=== PATIENT | male | born 1965 | race Caucasian/White ===

== ENCOUNTER → 2022-08-31 | Outpatient (CLI) | payer OTHER | END | disposition home or self-care (01) | LOC: LABPAT 12:10 | PROVIDERS: ATTEND Orthopaedic Surgery | DX: Z01.812 Encounter for preprocedural laboratory examination (principal); E11.9 Type 2 diabetes mellitus without complications; M16.9 Osteoarthritis of hip, unspecified | CPT/HCPCS: 83036 ==

== ENCOUNTER 2022-09-09 05:36 | Day surgery (SDC) | payer OTHER ==
[2022-09-06 16:17] VITALS: BMI 29.3
[~2022-09-09 05:36] MED LIST: ACETAMINOPHEN TAB 500 MG TAB PO PRN; ONDANSETRON 4 MG/2 ML VIAL IVP PRN; ROPIVACAINE/EPI/CLONIDINE/KET 50 ML SYRINGE MISCELLANE PRN; TRANEXAMIC ACID IN NACL,ISO-OS 1,000 MG in SALINE 1 100ML.BAG IVPB PRN
[2022-09-09] MEDS ORDERED: oxyCODONE ER 10 MG TAB.ER.12H PO PRN (06:00)
[2022-09-09] MEDS ORDERED: DEXAMETHASONE SOD PHOSPHATE 10 MG/ML 1 ML VIAL IV PRN (06:00)
[2022-09-09] MEDS ORDERED: KETOROLAC 15 MG/ML 1 ML VIAL IVP PRN (06:00)
[2022-09-09] MEDS ORDERED: FAMOTIDINE 20 MG/2 ML VIAL IVP PRN (06:00)
[2022-09-09] MEDS ORDERED: DOCUSATE 100 MG CAP PO PRN (06:00)
[2022-09-09] MEDS ORDERED: LACTATED RINGERS 1,000 ML IV ONE ×5 (06:00→10:00)
[2022-09-09 06:23] LABS: Glucose,Whole Blood 173 mg/dL (70-110)
[2022-09-09] MEDS ORDERED: fentaNYL (PF) 50 MCG/ML 2 ML AMP IVP ONE (06:48)
[2022-09-09] MEDS ORDERED: MIDAZOLAM 2 MG/2 ML VIAL IVP ONE (06:48)
[2022-09-09] MEDS ORDERED: ROPIVACAINE/EPI/CLONIDINE/KET 50 ML SYRINGE MISCELLANE PRN (06:54)
[2022-09-09] MEDS ORDERED: ROPIVACAINE 5 MG/ML 30 ML VIAL ONE (07:10)
[2022-09-09] MEDS ORDERED: GLYCOPYRROLATE 0.2 MG/ML 2 ML VIAL ONE (07:10)
[2022-09-09] MEDS ORDERED: PHENYLEPHRINE-0.9% NACL SYG 1,000 MCG/10 ML SYRINGE ONE (07:10)
[2022-09-09] MEDS ORDERED: MIDAZOLAM 2 MG/2 ML VIAL ONE (07:10)
[2022-09-09] MEDS ORDERED: ROCURONIUM 10 MG/ML (5 ML VIAL) IV ONE (07:10)
[2022-09-09] MEDS ORDERED: PROPOFOL 10 MG/ML 20 ML VIAL IV ONE (07:10)
[2022-09-09] MEDS ORDERED: SUCCINYLCHOLINE CHLORIDE 200 MG/10 ML VIAL IV ONE (07:10)
[2022-09-09] MEDS ORDERED: TRANEXAMIC ACID IN NACL,ISO-OS 1,000 MG/100 ML BAG ONE (07:10)
[2022-09-09] MEDS ORDERED: HYDROmorphone (PF) 1 MG/ML ONE (07:10)
[2022-09-09] MEDS ORDERED: NEOSTIGMINE 1 MG/ML 10 ML VIAL ONE (07:10)
[2022-09-09] MEDS ORDERED: VASOPRESSIN 20 UNIT/ML 1 ML VIAL ONE (07:10)
[2022-09-09] MEDS ORDERED: LIDOCAINE 2% INJ 20 MG/ML (2 ML VIAL) ONE (07:10)
[2022-09-09] MEDS ORDERED: fentaNYL (PF) 50 MCG/ML 2 ML AMP ONE (07:10)
[2022-09-09] MEDS ORDERED: VANCOMYCIN 1,000 MG VIAL MISCELLANE ONE (09:02)
[2022-09-09] MEDS ORDERED: HYDROcodone/APAP 5-325MG 1 EACH TAB PO PRN ×2 (09:42)
[2022-09-09] MEDS ORDERED: HYDROmorphone 0.5 MG/0.5 ML SYRINGE IVP PRN ×2 (09:42)
[2022-09-09] MEDS ORDERED: hydrOXYzine pamoate 25 MG CAP PO PRN (09:42)
[2022-09-09] MEDS ORDERED: NALOXONE 0.4 MG/ML 1 ML VIAL IV PRN (09:42)
[2022-09-09] MEDS ORDERED: HYDROmorphone 1 MG/ML 1 ML SYRINGE IVP PRN (09:42)
--- NOTE | 2022-09-09 09:51 | P.OP ---
Date of Procedure: 09/09/22 Preoperative Diagnosis: 1. Severe left hip osteoarthritis 2. Type II Diabetes 3. Coronary artery disease Postoperative Diagnosis: Same Procedure(s) Performed: Left direct anterior total hip arthroplasty Implants: 1. Stafford Trident II Acetabular Cup, Size #56 2. Cheryl Insignia Size # 8 Femoral Stem, High Offset 3. Biolox delta femoral head, 36 mm, +2.5 neck Anesthesia: GETA Surgeon: Kj Arenas [employer] Cutter #1: Mariana Timmons Estimated Blood Loss (ml): 300 IV fluids (ml): 1,200 Pathology: none sent (Routine gross and/or histopathologic evaluation by pathology not indicated based on my preoperative assessment of x-rays and intraoperative findings.) Condition: stable Disposition: PACU Indications for Procedure: I had a long discussion with the patient in the office on the potential risks and complications of an elective total hip replacement through a direct anterior approach. Risks discussed include, but are certainly not limited to, risks from anesthesia, superficial infection requiring local wound care or antibiotics, deep josafat-prosthetic joint infection and the treatment required to eradicate infection, intraoperative fracture, postoperative periprosthetic fracture, dam age to local blood vessels or nerves particularly the lateral femoral cutaneous nerve, delayed wound healing requiring local wound care or possibly surgical debridement, hip dislocation, leg length discrepancy, soft tissue irritation around the total hip implant such as iliopsoas tendinitis or trochanteric bursitis, wear and osteolysis from the implants, squeaking or audible noises, groin pain, thigh pain, heterotopic ossification, stiffness, aseptic loosening of the implants, dissatisfaction with surgical outcome, need for revision surgery, DVT, PE, swelling of the operative extremity, acute coronary event, stroke, failure to thrive, and possibly loss of life or limb. The patient understands that while these are the most common complications after an elective hip replacement there are certainly other less common complications possible. They were given ample time to ask questions regarding the potential complications of a hip replacement. Following our discussion the patient provided their verbal and written consent to go forward with an elective total hip replacement. Operative Findings: Severe osteoarthritis of the left femoral head and acetabulum. Description of Procedure: The patient was identified in the preoperative holding area and the correct hip was marked with my initials. I reviewed the procedure and consent with the patient. All of their questions were answered. The patient was then brought back into the operating room by anesthesia. While on the [facility] anesthesia was administered by the anesthesia team. Preoperative antibiotics and tranexamic acid were also given. After the patient was under anesthesia I examined their ankles to determine their preoperative leg length discrepancy. The skin over t he anterior aspect of the hip was shaved to remove hair over the site of planned incision. Both feet and ankles were padded with webril and boots for the [place] were applied. The patient was then carefully transferred onto the [place] table. A perineal post was immediately placed. The arms were placed on arm holders and were well-padded. Both boots were secured to the spars on the [place] table. The patient was positioned so that the pelvis was centered over the post. Nonsterile drapes were applied. A timeout was performed identifying the correct patient, operative extremity, and procedure. At this point fluoroscopy was brought in to take preoperative images of the pelvis and operative hip. Using the standing AP pelvis from the office as a template, a comparable image was obtained with fluoroscopy. A metallic bar was used to create a bi-ischial line for use as a reference to leg length adjustments during the procedure. Global offset was also measured on both the operative and nonoperative leg. Fluoroscopy was then brought out and a pre-scrub using a chlorhexidine scrub brush was performed. The operative limb was then prepped and draped in the standard sterile fashion. An anterior longitudinal incision was made lateral and distal to the ASIS. The skin and subcutaneous tissues were incised sharply. The underlying tensor fascia was identified and incised in its midportion. The fascia was dissected free from the underlying muscle and the muscle belly was retracted. A blunt tipped cobra retractor was placed over the superior neck under the muscle fibers of the gluteus minimus. The deep enveloping fascia of the tensor was incised. The anterior leash of vessels were then identified and cauterized. The fascia between the rectus and the capsule was then incised and the pre-capsular fat was excised. A second Cobra was placed inferior to the neck. The interval between the rectus and iliocapsularis and the hip capsule was developed and a retractor was placed carefully over the anterior rim of the acetabulum. A T-shaped anterior capsulotomy was performed. The superior capsular leaflet was left in place in the inferior capsular flap was excised. The Cobra retractors were placed intracapsularly. We then made a femoral neck osteotomy according to preoperative and intraoperative templating and confirmed the level of the osteotomy using fluoroscopic imaging. The femoral head was removed, passed off to the back table, and sized. The superior capsular flap was excised. Retractors were placed circumferentially exposing the acetabulum. We then circumferentially debrided the acetabulum free of labrum and osteophytes. The pulvinar was removed to fully visualize the cotyloid fossa. We then sequentially reamed to achieve peripheral fit and excellent bleeding subchondral bone. The socket was thoroughly irrigated. The acetabular component was impacted into the appropriate position using fluoroscopy to guide version, inclination, and depth of insertion taking care to have a comparable image of the AP pelvis to the standing image taken in the office. An excellent press-fit was achieved and final position was confirmed using fluoroscopy. The press fit was augmented with bony cancellus dome screws. The liner was then impacted into the socket. Attention was then turned to the femur. The remnant dorsal lateral capsule was excised. The short external rotators were visible and protected. A bone hook was used to confirm appropriate translation of the trochanter away from the acetabulum. The leg was then extended and adducted and the bone hook was used to elevate the femur for broaching. A box osteotome and blunt tipped canal sound was then utilized to gain access to the femoral canal. We then sequentially broached the femur in appropriate anteversion until excellent torsional stability was achieved. The neck cut was brought flush to the trial broach with a calcar planar. A trial neck and head were then placed onto the broach and the hip was atraumatically reduced under direct visualization. External rotation to 90 was performed to assess stability. Fluoroscopy was brought in. An AP and lateral fluoroscopic image of the proximal femur was obtained to assess position and fill of the trial broach. An AP of the pelvis was then obtained and matched to the preoperative image taken. A bi-ischial bar was then placed and measurements were taken to assess changes in length and offset. The hip was then carefully dislocated, the proximal femur was exposed, and the trial implants were removed. The wound and proximal femur was thoroughly irrigated using sterile saline and pulsatile lavage. The final femoral implant was dispensed and gently tapped into place generating an excellent press-fit. The trunnion was cleansed and the final head was tapped into place to engage the Waldrop taper. The acetabulum was irrigated and visualized to be free of debris. The hip was carefully reduced. Stability was checked clinically with external rotation to 90 and there was no evidence of instability. Final fluoroscopic images were taken. The wound was then thoroughly irrigated and soaked with a dilute Betadine rinse for 3 minutes. 3 L of sterile saline was irrigated through the wound using pulsatile lavage. Local anesthetic cocktail was injected into the soft tissues around the surgical field. The wound was then closed in layers. A sterile dressing was placed over the surgical incision. The drapes were taken down and the patient was carefully transferred off of the [place] table. Following removal of the boots the leg lengths felt acceptable. The patient was then taken to recovery room having tolerated the procedure well. Mariana Timmons PA-C was required as a skilled certified surgical assistant for patient positioning, surgical exposure, retraction, placement of implants, and closure of the surgical wound. PLAN: The patient can weight-bear as tolerated on the operative extremity. 2 doses of postoperative antibiotics. DVT prophylaxis with aspirin 81 mg twice a day based on preoperative risk stratification. Physical therapy for gait training.
--- NOTE | 2022-09-09 09:55 | FL ---
Fluoroscopy HISTORY: Anterior hip replacement 45 seconds fluoroscopy time supplied to the referring clinician. 6 intraoperative C-arm images docum ent the procedure. See dictated report from orthopedic surgery.
[2022-09-09 11:18] LABS: Glucose,Whole Blood 236 mg/dL (70-110)
[2022-09-09] MEDS ORDERED: INSULIN ASPART (NovoLOG) 100 UNIT/ML VIAL SQ ONE (11:24)
--- NOTE | 2022-09-09 11:24 | P.ANPRN ---
Procedure Note - Anesthesia - Nerve Block Performed Left Erector Spinae Single Time Out Performed: Yes ([id number]) Date of Procedure: 09/09/22 Procedure Start Time: 06:48 Procedure Stop Time: 06:54 Location of Patient: PreOp Indication: Acute Post-Operative Pain, Requested by Surgeon Specifically requested for management of pain by DrTristen: Kj Arenas Sedation Type: Sedate with meaningful contact maintained Preparation: Sterile Prep Position: Sitting Catheter: None Needle Types: Pajunk Needle Gauge: 21 Ultrasound used to visualize needle placement: Yes Ultrasound used to observe medication spread: Yes Injectate: 0.5% Ropivacaine (see comment for volume) (30cc) Blood Aspirated: No Pain Paresthesia on Injection Noted: No Resistance on Injection: Normal Image Stored and Saved: Yes Events: Uneventful and Well Tolerated
[2022-09-09] MEDS: LACTATED RINGERS 1,000 ML IV SCH ×2 (14:49→15:11)
[2022-09-09] MEDS ORDERED: BENZOCAINE/MENTHOL LOZENG 1 EACH LOZENGE MUCOUS MEM PRN (15:50)
[2022-09-09 16:46] LABS: Glucose,Whole Blood 202 mg/dL (70-110)
[2022-09-09 20:09] LABS: Glucose,Whole Blood 190 mg/dL (70-110)
[2022-09-09] MEDS ORDERED: SENNOSIDES-DOCUSATE SODIUM 1 EACH TAB PO SCH (21:00)
[2022-09-09] MEDS: ASPIRIN 81 MG PO SCH (21:26)
[2022-09-10] MEDS ORDERED: ONDANSETRON 4 MG TAB PO PRN (01:58)
[2022-09-10 02:58] VITALS: PULSE 85; TEMP 98.3
[2022-09-10 07:14] LABS: Glucose,Whole Blood 163 mg/dL (70-110)
[2022-09-10] MEDS: LACTATED RINGERS 1,000 ML IV SCH (07:18)
[2022-09-10] MEDS: ASPIRIN 81 MG PO SCH (08:50)
[2022-09-10 08:55] LABS: HCT 33.2 % (39.6-50.0); HGB 11.4 g/dL (13.0-17.0); MCH 31.5 pg (27.0-32.0); MCHC 34.3 g/dL (32.0-37.0); MCV 91.7 fL (80.0-97.0); Mean Platelet Volume 9.5 fL (9.5-12.2); NRBC Per 100 WBC 0 /100 WBCS (0.0-0.0); Platelet Count 277 X 10*3/uL (140-440); RBC 3.62 X 10*6/uL (4.40-5.60); RDW 12.4 % (11.5-14.5); WBC 15.38 X 10*3/uL (4.50-10.00)
[2022-09-10] MEDS ORDERED: ASPIRIN 81 MG PO SCH (09:00)
[2022-09-10] MEDS ORDERED: FLUoxetine HCL 20 MG CAP PO SCH (09:00)
--- NOTE | 2022-09-10 09:31 | P.DS ---
Providers Date of admission: 09/09/2022 Expected date of discharge: 09/10/22 Attending physician: Kj Arenas Consults: 09/09/22 09:42 Consult Physician Routine Consulting Provider: Bhavna Leone Consult Reason/Comments: medical management Do you want consulting provider notified?: Yes Primary care physician: Humberto Carter - Discharge Diagnosis(es) (1) Primary localized osteoarthritis of left hip Current Visit: Yes Status: Acute (2) Status post total replacement of left hip Current Visit: Yes Status: Acute Hospital Course: This is a 57-year-old Male with known history of degenerative arthritis of the hip. The patient presents for evaluation. After discussion and consideration patient elects to proceed with total hip arthroplasty with direct anterior approach. The patient is seen preoperatively by primary care physician and cleared for surgery. Patient is admitted to [facility] on 09/09/2022 for total hip arthroplasty with direct anterior approach. The procedure is performed without complication or sequelae. The patient is doing well postoperatively. Labs and vital signs are stable on day of discharge. On day of discharge patient's hip incision is healing well. There is minimal erythema. There is no drainage noted at this time. There is minimal soft tissue swelling to the hip and thigh. Patient has full foot and ankle motion without difficulty or pain. Neurovascular status to the lower extremity is intact. Patient is discharged to home in good condition. Please see med rec for accurate list of home medications. Plan - Discharge Summary Discharge Rx Participant: No New Discharge Prescriptions: New Omeprazole 40 mg PO DAILY 30 Days #30 cap Diclofenac Sodium [Voltaren] 75 mg PO BID 30 Days #60 tab Aspirin 81 mg PO BID 30 Days #60 tab Docusate [Colace] 100 mg PO BID #60 capsule Doxycycline Monohydrate 100 mg PO BID 14 Days #28 cap HYDROcodone/APAP 5-325MG [[place] 5-325] 1 - 2 tab PO Q6HR PRN 7 Days #32 tab PRN Reason: Pain No Action Aspirin 81 mg PO DAILY metFORMIN HCL 1,000 mg PO BID Atorvastatin [Lipitor] 40 mg PO HS Dulaglutide [Trulicity] 3 mg SQ TH glipiZIDE XL [Glucotrol XL] 10 mg PO BID Pantoprazole [Protonix] 40 mg PO HS FLUoxetine HCL [PROzac] 20 mg PO DAILY Lisinopril-Hctz 20-25 mg [Zestoretic 20-25] 1 tab PO HS Discharge Medication List Aspirin 81 mg PO DAILY 09/06/22 [History] Atorvastatin [Lipitor] 40 mg PO HS 09/06/22 [History] Dulaglutide [Trulicity] 3 mg SQ TH 09/06/22 [History] FLUoxetine HCL [PROzac] 20 mg PO DAILY 09/06/22 [History] Lisinopril-Hctz 20-25 mg [Zestoretic 20-25] 1 tab PO HS 09/06/22 [History] metFORMIN HCL 1,000 mg PO BID 09/06/22 [History] Pantoprazole [Protonix] 40 mg PO HS 09/08/22 [History] glipiZIDE XL [Glucotrol XL] 10 mg PO BID 09/08/22 [History] Aspirin 81 mg PO BID 30 Days #60 tab 09/09/22 [Rx] Diclofenac Sodium [Voltaren] 75 mg PO BID 30 Days #60 tab 09/09/22 [Rx] Docusate [Colace] 100 mg PO BID #60 capsule 09/09/22 [Rx] Doxycycline Monohydrate 100 mg PO BID 14 Days #28 cap 09/09/22 [Rx] HYDROcodone/APAP 5-325MG [[place] 5-325] 1 - 2 tab PO Q6HR PRN 7 Days #32 tab 09/09/22 [Rx] Omeprazole 40 mg PO DAILY 30 Days #30 cap 09/09/22 [Rx] Follow up Appointment(s)/Referral(s): Kj Arenas MD [Medical Doctor] - 2 Weeks Activity/Diet/Wound Care/Special Instructions: Weight bear to tolerance on operative extremity with a walker. Keep operative dressing in place until follow-up in the office. Call the office if dressing falls off or becomes saturated. May shower over dressing. Take pain medications as prescribed. Take aspirin 81mg BID x 4 weeks for blood c lot prevention. Take antibiotics as prescribed. Follow-up in the office in two weeks with Dr. Arenas. Call the office with any questions or concerns, Discharge Disposition: HOME WITH HOME HEALTH SERVICES
[2022-09-10 09:46] LABS: Basophils # (A) 0.02 X 10*3/uL (0.00-0.10); Basophils % (A) 0.1 %; Eosinophils # (A) 0.01 X 10*3/uL (0.04-0.35); Eosinophils % (A) 0.1 %; Immature Grans, Automated 0.3 %; Lymphocytes # (A) 1.86 X 10*3/uL (0.90-5.00); Lymphocytes % (A) 12.1 %; Monocytes # (A) 1.58 X 10*3/uL (0.20-1.00); Monocytes % (A) 10.3 %; Neutrophils # (A) 11.86 X 10*3/uL (1.80-7.70); Neutrophils % (A) 77.1 %
[2022-09-10 10:02] VITALS: BP 104/67; RESP 15
[2022-09-10] MEDS ORDERED: LISINOPRIL-HCTZ 20-25 MG 1 EACH TAB PO SCH (21:00)
[2022-09-10] MEDS ORDERED: PANTOPRAZOLE 40 MG TABLET PO SCH (21:00)
[2022-09-10] MEDS ORDERED: ATORVASTATIN 40 MG TAB PO SCH (21:00)
== END 2022-09-10 13:27 | disposition home health service (06) ==
LOC: OR 05:36 → 4SSUR 14:14 → OR 09-10 13:27
PROVIDERS: ATTEND Orthopaedic Surgery
DX: M16.12 Unilateral primary osteoarthritis, left hip (principal); E11.9 Type 2 diabetes mellitus without complications; I25.10 Atherosclerotic heart disease of native coronary artery without angina pectoris; M25.752 Osteophyte, left hip; I11.9 Hypertensive heart disease without heart failure; Z83.3 Family history of diabetes mellitus; Z82.49 Family history of ischemic heart disease and other diseases of the circulatory system; Z87.891 Personal history of nicotine dependence; Z86.59 Personal history of other mental and behavioral disorders
CPT/HCPCS: 97162; 64999; 86900; 86901; 85025; 86850; 73501; 27130; J2250; J3370; J1100; J0690 ×2; J2405; J3010; J1885

== ENCOUNTER 2023-09-29 20:04 | Emergency (ER) | payer OTHER ==
[2023-09-29 20:44] VITALS: RESP 18; TEMP 98.1
--- NOTE | 2023-09-29 21:58 | ED ---
Eye Problem HPI - General Chief complaint: Eye Problems Stated complaint: facial pain/swelling Time Seen by Provider: 09/29/23 21:00 Source: patient Mode of arrival: ambulatory Limitations: no limitations - History of Present Illness Initial comments: 58-year-old male presents to the ED with chief complaint of eye problem. Patient states earlier this week was having eye irritation and discharge and was seen at an urgent care. Was told he had pinkeye and was prescribed Keflex and tobramycin eyedrops on 09/25/23. Despite using this, reports worsening pain of the eye and also notes that he is now started to have pain and swelling of the face surrounding the eye. Denies fever or chills. No chest pain shortness of breath. No other complaints. - Related Data Home Medications Medication Instructions Recorded Confirmed Aspirin 81 mg PO DAILY 09/06/22 09/08/22 Atorvastatin [Lipitor] 40 mg PO HS 09/06/22 09/08/22 Dulaglutide [Trulicity] 3 mg SQ TH 09/06/22 09/08/22 FLUoxetine HCL [PROzac] 20 mg PO DAILY 09/06/22 09/08/22 Lisinopril-Hctz 20-25 mg 1 tab PO HS 09/06/22 09/08/22 [Zestoretic 20-25] metFORMIN HCL 1,000 mg PO BID 09/06/22 09/08/22 Pantoprazole [Protonix] 40 mg PO HS 09/08/22 09/08/22 glipiZIDE XL [Glucotrol XL] 10 mg PO BID 09/08/22 09/08/22 Previous Rx's Medication Instructions Recorded Aspirin 81 mg PO BID 30 Days #60 tab 09/09/22 Diclofenac Sodium [Voltaren] 75 mg PO BID 30 Days #60 tab 09/09/22 Docusate [Colace] 100 mg PO BID #60 capsule 09/09/22 Doxycycline Monohydrate 100 mg PO BID 14 Days #28 cap 09/09/22 HYDROcodone/APAP 5-325MG [[place] 1 - 2 tab PO Q6HR PRN 7 Days #32 09/09/22 5-325] tab Omeprazole 40 mg PO DAILY 30 Days #30 cap 09/09/22 Amoxic-Pot Clav 875-125Mg 1 tab PO Q12HR 7 Days #14 tab 09/30/23 [Augmentin 875-125] Allergies Allergy/AdvReac Type Severity Reaction Status Date / Time ciprofloxacin [From Cipro] Allergy VERY LOW Verified 09/29/23 20:31 BLOOD SUGAR Review of Systems ROS Statement: Those systems with pertinent positive or pertinent negative responses have been documented in the HPI. ROS Other: All systems not noted in ROS Statement are negative. Past Medical History Past Medical History: Coronary Artery Disease (CAD), Cancer, Chest Pain / Angina, Diabetes Mellitus, GERD/Reflux, Hypertension Additional Past Medical History / Comment(s): SKIN CANCER, History of Any Multi-Drug Resistant Organisms: None Reported Past Surgical History: Heart Catheterization, Orthopedic Surgery Additional Past Surgical History / Comment(s): SKIN LESION REMOVED, COLONOSCOPY, Left hip replacement, Past Anesthesia/Blood Transfusion Reactions: No Reported Reaction Past Psychological History: Anxiety Smoking Status: Former smoker Past Alcohol Use History: Rare Past Drug Use History: None Reported - Past Family History Mother Family Medical History: No Reported History Father Family Medical History: Cancer Additional Family Medical History / Comment(s): LUNG CANCER General Exam Limitations: no limitations General appearance: alert, in no apparent distress Eye exam: Present: PERRL, EOMI, other (Injected. Reported pain on extraocular movements however no entrapment. No proptosis. Surrounding warmth and erythem a, minimal edema with tenderness palpation.) Respiratory exam: Present: normal lung sounds bilaterally Cardiovascular Exam: Present: regular rate, normal rhythm GI/Abdominal exam: Present: soft Neurological exam: Present: alert, oriented X3 Skin exam: Present: warm, dry Course Vital Signs 09/29/23 20:31 Temperature 98.1 F Pulse Rate 98 Respiratory 18 Rate Blood Pressure 123/81 O2 Sat by Pulse 98 Oximetry Medical Decision Making - Medical Decision Making Was pt. sent in by a medical professional or institution (, PA, DRAW FIRE OPERATOR, urgent care, hospital, or correction...) When possible be specific @ -No Did you speak to anyone other than the patient for history (EMS, parent, family, police, friend...)? What history was obtained from this source @ -No Did you review nursing and triage notes (agree or disagree)? Why? @ -I reviewed and agree with nursing and triage notes Were old charts reviewed (outside hosp., previous admission, EMS record, old EKG, old radiological studies, urgent care reports/EKG's, correction records)? Report findings @ -No old charts were reviewed Differential Diagnosis (chest pain, altered mental status, abdominal pain women, abdominal pain men, vaginal bleeding, weakness, fever, dyspnea, syncope, headache, dizziness, GI bleed, back pain, seizure, CVA, palpatations, mental health, musculoskeletal)? @ -Preseptal cellulitis, orbital cellulitis, Facial cellulitis, MRSA. This not meant to be an all-inclusive list. EKG interpreted by me (3pts min.). @ -None X-rays interpreted by me (1pt min.). @ -None done CT interpreted by me (1pt min.). @ -CT interpreted by me showing preseptal cellulitis however no evidence of orbital cellulitis. U/S interpreted by me (1pt. min.). @ -None done What testing was considered but not performed or refused? (CT, X-rays, U/S, labs)? Why? @ -None What meds were considered but not given or refused? Why? @ -None Did you discuss the management of the patient with other professionals (professionals i.e. , PA, DRAW FIRE OPERATOR, lab, RT, psych nurse, social security assessor, disaster recovery consultant, teacher, code enforcement officer, case work aide)? Give summary @ -No Was smoking cessation discussed for >3mins.? @ -No Was critical care preformed (if so, how long)? @ -No Were there social determinants of health that impacted care today? How? (Homelessness, low income, unemployed, alcoholism, drug addiction, transportation, low edu. Level, literacy, decrease access to med. care, fpc, re hab)? @ -No Was there de-escalation of care discussed even if they declined (Discuss DNR or withdrawal of care, Hospice)? DNR status @ -No What co-morbidities impacted this encounter? (DM, HTN, Smoking, COPD, CAD, Cancer, CVA, ARF, Chemo, Hep., AIDS, mental health diagnosis, sleep apnea, morbid obesity)? @ -None Was patient admitted / discharged? Hospital course, mention meds given and route, prescriptions, significant lab abnormalities, going to OR and other pertinent info. @ -Discharge 58-year-old male presented to the ED with right eye pain. Patient initially seen earlier this week and was diagnosed with conjunctivitis. Was divided tobramycin eyedrops and Keflex. Returning today with increasing eye pain and redness surrounding the eye. CT of the orbit with contrast did not show any evidence of orbital cellulitis. Did show preseptal cellulitis. At this time, vital signs stable afebrile. Laboratory studies do not show an elevated white blood cell count. Patient will be switched to Augmentin. Provided dose here in the ED. Discharged home in stable condition. Discussed return precautions with patient who verbalizes agree. Undiagnosed new problem with uncertain prognosis? @ -No Drug Therapy requiring intensive monitoring for toxicity (Heparin, Nitro, Insulin, Cardizem)? @ -No Were any procedures done? @ -No Diagnosis/symptom? @ -Preseptal cellulitis Acute, or Chronic, or Acute on Chronic? @ -Acute Uncomplicated (without systemic symptoms) or Complicated (systemic symptoms)? @ -Uncomplicated Side effects of treatment? @ -No Exacerbation, Progression, or Severe Exacerbation? @ -No Poses a threat to life or bodily function? How? (Chest pain, USA, VT, pneumonia, PE, COPD, DKA, ARF, appy, cholecystitis, CVA, Diverticulitis, Homicidal, Suicidal, threat to staff... and all critical care pts) @ -No - Lab Data Result diagrams: 09/29/23 22:03 09/29/23 22:03 Lab Results 09/29/23 09/29/23 Range/Units 22:03 22:03 WBC 7.9 (3.8-10.6) k/uL RBC 4.46 (4.30-5.90) m/uL Hgb 14.1 (13.0-17.5) gm/dL Hct 41.7 (39.0-53.0) % MCV 93.4 (80.0-100.0) fL MCH 31.5 (25.0-35.0) pg MCHC 33.7 (31.0-37.0) g/dL RDW 12.0 (11.5-15.5) % Plt Count 316 (150-450) k/uL MPV 7.9 Neutrophils % 44 % Lymphocytes % 38 % Monocytes % 9 % Eosinophils % 5 % Basophils % 1 % Neutrophils # 3.4 (1.3-7.7) k/uL Lymphocytes # 3.0 (1.0-4.8) k/uL Monocytes # 0.7 (0-1.0) k/uL Eosinophils # 0.4 (0-0.7) k/uL Basophils # 0.0 (0-0.2) k/uL Sodium 138 (137-145) mmol/L Potassium 3.9 (3.5-5.1) mmol/L Chloride 101 (98-107) mmol/L Carbon Dioxide 27 (22-30) mmol/L Anion Gap 10 mmol/L BUN 17 (9-20) mg/dL Creatinine 0.68 (0.66-1.25) mg/dL Est GFR (CKD-EPI)AfAm >90 (>60 ml/min/1.73 sqM) Est GFR (CKD-EPI)NonAf >90 (>60 ml/min/1.73 sqM) Glucose 135 H (74-99) mg/dL Calcium 9.4 (8.4-10.2) mg/dL Total Bilirubin 0.5 (0.2-1.3) mg/dL AST 22 (17-59) U/L ALT 20 (4-49) U/L Alkaline Phosphatase 85 (38-126) U/L C-Reactive Protein <0.5 (<1.0) mg/dL Total Protein 7.0 (6.3-8.2) g/dL Albumin 4.0 (3.5-5.0) g/dL Disposition Clinical Impression: Preseptal cellulitis Disposition: HOME SELF-CARE Condition: Good Additional Instructions: Please return to the Emergency Department if symptoms worsen or any other concerns. Please follow up with your primary care provider. Prescriptions: Amoxic-Pot Clav 875-125Mg [Augmentin 875-125] 1 tab PO Q12HR 7 Days #14 tab Is patient prescribed a controlled substance at d/c from ED?: No Referrals: Humberto Carter MD [Primary Care Provider] - 1-2 days Time of Disposition: 04:31
[2023-09-29] MEDS ORDERED: SODIUM CHLORIDE 0.9% 1,000 ML IV STA (22:00)
[2023-09-29] MEDS ORDERED: KETOROLAC 15 MG/ML 1 ML VIAL IVP STA (22:00)
[2023-09-29 23:24] LABS: Basophils % (A) 1 %; Eosinophils # (A) 0.4 k/uL (0-0.7); Eosinophils % (A) 5 %; HCT 41.7 % (39.0-53.0); HGB 14.1 gm/dL (13.0-17.5); Lymphocytes % (A) 38 %; MCH 31.5 pg (25.0-35.0); MCHC 33.7 g/dL (31.0-37.0); MCV 93.4 fL (80.0-100.0); Mean Platelet Volume 7.9; Monocytes # (A) 0.7 k/uL (0-1.0); Monocytes % (A) 9 %; Neutrophils # (A) 3.4 k/uL (1.3-7.7); Neutrophils % (A) 44 %; Platelet Count 316 k/uL (150-450); RBC 4.46 m/uL (4.30-5.90); WBC 7.9 k/uL (3.8-10.6)
[2023-09-29 23:36] LABS: ALT 20 U/L (4-49); AST 22 U/L (17-59); African American GFR (CKD) >90 (>60 ml/min/1.73 sqM); Alkaline Phosphatase 85 U/L (38-126); Anion Gap 10 mmol/L; Blood Urea Nitrogen 17 mg/dL (9-20); Calcium 9.4 mg/dL (8.4-10.2); Carbon Dioxide 27 mmol/L (22-30); Chloride 101 mmol/L (98-107); Glucose 135 mg/dL (74-99); Non-African American GFR(CKD) >90 (>60 ml/min/1.73 sqM); Potassium 3.9 mmol/L (3.5-5.1); Sodium 138 mmol/L (137-145); Total Bilirubin 0.5 mg/dL (0.2-1.3)
[2023-09-30 01:10] LABS: C Reactive Protein <0.5 mg/dL (<1.0)
--- NOTE | 2023-09-30 04:16 | CT ---
EXAM: CT Orbits With Intravenous Contrast CLINICAL HISTORY: ITS.REASON CT Reason: r/o orbital cellulitis (R) TECHNIQUE: Axial computed tomography images of the orbits with intravenous contrast. CTDI is 32.1 mGy and DLP is 660.8 mGy-cm. This CT exam was performed using one or more of the following dose reduction techniques: automated exposure control, adjustment of the mA and/or kV according to patient size, and/or use of iterative reconstruction technique. COMPARISON: No relevant prior studies available. FINDINGS: Orbits: Unremarkable. Sinuses: No air-fluid levels. Bones/joints: No acute fracture. Soft tissues: Right preseptal soft tissue swelling. No retrobulbar process.. IMPRESSION: Right preseptal cellulitis. No fluid collection. No post septal process.
[2023-09-30] MEDS ORDERED: AMOXIC-POT CLAV 875MG STARTER PACK 2 TAB BTL PO STA (04:28)
[2023-09-30 04:50] VITALS: BP 156/99; PULSE 81
== END 2023-09-30 04:37 | disposition home or self-care (01) ==
LOC: EC 20:04
DX: L03.213 Periorbital cellulitis (principal); I10 Essential (primary) hypertension; E11.9 Type 2 diabetes mellitus without complications; K21.9 Gastro-esophageal reflux disease without esophagitis; I25.10 Atherosclerotic heart disease of native coronary artery without angina pectoris; F41.9 Anxiety disorder, unspecified; Z79.82 Long term (current) use of aspirin; Z79.84 Long term (current) use of oral hypoglycemic drugs; Z79.899 Other long term (current) drug therapy; Z87.891 Personal history of nicotine dependence; Z88.8 Allergy status to other drugs, medicaments and biological substances
CPT/HCPCS: 36415; 80053; 85025; 86140; 70481; 99284; 96374; 96361; J1885; Q9967

== ENCOUNTER → 2023-10-25 | Outpatient (CLI) | payer OTHER ==
[2023-10-25 12:50] LABS: INR 0.9 (<1.2); Partial Thromboplastin Time 23.3 sec (22.0-30.0); Prothrombin Time 10.2 sec (10.0-12.5)
[2023-10-25 16:03] LABS: Appearance,Urine Clear (Clear); Bilirubin,Urine Negative (Negative); Blood,Urine Negative (Negative); Color,Urine Yellow (Yellow); Ketones,Urine Negative (Negative); Nitrite,Urine Negative (Negative); PH, Urine 8.5; Specific Gravity,Urine 1.018 (1.001-1.030)
[2023-10-25 16:10] LABS: ALT 17 U/L (10-49); AST 16 U/L (14-35); Albumin 4.7 g/dL (3.8-4.9); Albumin/Globulin Ratio 1.57 Ratio (1.60-3.17); Alkaline Phosphatase 103 U/L (41-126); Blood Urea Nitrogen 22.2 mg/dL (9.0-27.0); Calcium 10.9 mg/dL (8.7-10.3); Chloride 94 mmol/L (96-109); Glucose 140 mg/dL (70-110); Potassium 4.2 mmol/L (3.5-5.5); Sodium 137 mmol/L (135-145); Total Bilirubin 0.6 mg/dL (0.3-1.2); Total Protein 7.7 g/dL (6.2-8.2)
[2023-10-25 19:23] LABS: HCT 46.1 % (39.6-50.0); HGB 15.4 g/dL (13.0-17.0); MCHC 33.4 g/dL (32.0-37.0); MCV 92.9 FL (80.0-97.0); Mean Platelet Volume 9.6 FL (9.5-12.2); NRBC Per 100 WBC 0 X 10*3/uL (0.00-0.01); Platelet Count 366 X 10*3/uL (140-440); RBC 4.96 X 10*6/uL (4.40-5.60); RDW 12.3 % (11.5-14.5); WBC 9.72 X 10*3/uL (4.50-10.00)
== END | disposition home or self-care (01) ==
LOC: LABPAT 11:07
PROVIDERS: ATTEND Orthopaedic Surgery
DX: Z01.812 Encounter for preprocedural laboratory examination (principal); M16.11 Unilateral primary osteoarthritis, right hip
CPT/HCPCS: 36415; 80053; 81003; 83036; 85027; 85610; 85730; 86850; 86900; 86901; 87070; 93005

== ENCOUNTER 2023-11-01 12:25 | Day surgery (SDC) | payer OTHER ==
[2023-10-26 16:27] VITALS: BMI 28.0
[~2023-11-01 12:25] MED LIST changes: +DEXAMETHASONE SOD PHOSPHATE 10 MG/ML 1 ML VIAL IV PRN; +DEXAMETHASONE SOD PHOSPHATE 4 MG/ML 1 ML VIAL IV ONE; +DOCUSATE 100 MG CAP PO PRN; +FAMOTIDINE 20 MG/2 ML VIAL IVP PRN; +HYDROmorphone 0.5 MG/0.5 ML SYRINGE IVP PRN; +KETOROLAC 15 MG/ML 1 ML VIAL IVP PRN; +LIDOCAINE 1% (10MG/ML) FOR IV START INTRADERMA PRN; +MIDAZOLAM 2 MG/2 ML VIAL IV PRN; +ONDANSETRON 4 MG/2 ML VIAL IVP ONE; +TRANEXAMIC 1,000 MG/100ML-NACL 1,000 MG in SALINE 1 100ML.BAG IV PRN; +TRANEXAMIC 1,000 MG/100ML-NACL 1,000 MG in SALINE 1 100ML.BAG IVPB PRN; -TRANEXAMIC ACID IN NACL,ISO-OS 1,000 MG in SALINE 1 100ML.BAG IVPB PRN; +oxyCODONE ER 10 MG TAB.ER.12H PO PRN
[2023-11-01] MEDS ORDERED: LACTATED RINGERS 1,000 ML IV ONE ×2 (13:52→18:13)
[2023-11-01 13:59] LABS: Glucose,Whole Blood 154 mg/dL (70-110)
[2023-11-01] MEDS ORDERED: MIDAZOLAM 2 MG/2 ML VIAL IVP ONE (14:24)
--- NOTE | 2023-11-01 14:35 | P.ANPRN ---
Procedure Note - Anesthesia - Nerve Block Performed Right Rock Single Time Out Performed: Yes (1423) Date of Procedure: 11/01/23 Procedure Start Time: 14:25 Procedure Stop Time: 14:30 Location of Patient: PreOp Indication: Acute Post-Operative Pain, Requested by Surgeon Sedation Type: Sedate with meaningful contact maintained Preparation: Sterile Prep, Sterile Dressing Position: Supine Catheter: None Needle Types: Pajunk Needle Gauge: 21 Ultrasound used to visualize needle placement: Yes Ultrasound used to observe medication spread: Yes Injectate: 0.5% Ropivacaine (see comment for volume) (20 ml) Blood Aspirated: No Pain Paresthesia on Injection Noted: No Resistance on Injection: Normal Image Stored and Saved: Yes Events: Uneventful and Well Tolerated
[2023-11-01] MEDS ORDERED: NEOSTIGMINE 1 MG/ML 10 ML VIAL ONE (16:00)
[2023-11-01] MEDS ORDERED: PROPOFOL 10 MG/ML 20 ML VIAL IV ONE (16:00)
[2023-11-01] MEDS ORDERED: ROCURONIUM 10 MG/ML (5 ML VIAL) IV ONE (16:00)
[2023-11-01] MEDS ORDERED: GLYCOPYRROLATE 0.2 MG/ML 2 ML VIAL ONE (16:00)
[2023-11-01] MEDS ORDERED: fentaNYL (PF) 50 MCG/ML 2 ML AMP ONE (16:00)
[2023-11-01] MEDS ORDERED: ROPIVACAINE 5 MG/ML 30 ML VIAL ONE (16:00)
[2023-11-01] MEDS ORDERED: PHENYLEPHRINE-0.9% NACL SYG 1,000 MCG/10 ML SYRINGE ONE (16:00)
[2023-11-01] MEDS ORDERED: LIDOCAINE 1% INJ 10MG/ML (20 ML MDV) ONE (16:00)
[2023-11-01] MEDS ORDERED: MIDAZOLAM 2 MG/2 ML VIAL ONE (16:00)
[2023-11-01] MEDS ORDERED: TRANEXAMIC 1,000 MG/100ML-NACL PREMIX BAG ONE (16:00)
[2023-11-01] MEDS ORDERED: hydrOXYzine pamoate 25 MG CAP PO PRN (18:31)
[2023-11-01] MEDS ORDERED: NALOXONE 0.4 MG/ML 1 ML VIAL IV PRN (18:31)
[2023-11-01] MEDS ORDERED: diazePAM 5 MG TAB PO PRN (18:31)
[2023-11-01] MEDS ORDERED: HYDROmorphone 1 MG/ML 1 ML SYRINGE IVP PRN (18:31)
[2023-11-01] MEDS ORDERED: HYDROcodone/APAP 5-325MG 1 EACH TAB PO PRN (18:31)
[2023-11-01] MEDS ORDERED: HYDROmorphone 0.5 MG/0.5 ML SYRINGE IVP PRN (18:31)
[2023-11-01] MEDS ORDERED: MAGNESIUM HYDROXIDE 2,400 MG/30 ML CUP PO PRN (18:31)
[2023-11-01] MEDS ORDERED: ONDANSETRON 4 MG/2 ML VIAL IVP PRN (18:31)
--- NOTE | 2023-11-01 18:31 | P.OP ---
Date of Procedure: 11/01/23 Preoperative Diagnosis: Severe right hip osteoarthritis Postoperative Diagnosis: Same Procedure(s) Performed: Right direct anterior total hip arthroplasty Implants: 1. Cheryl Trident II Acetabular Cup, Size #56 2. Cheryl Insignia Size #7 Femoral Stem, High Offset 3. Biolox delta femoral head, 36 mm, - 5 mm neck Anesthesia: MITA, regional Surgeon: Kj Arenas Estimated Blood Loss (ml): 200 IV fluids (ml): 1,400 Pathology: none sent Condition: stable Disposition: PACU Indications for Procedure: I had a long discussion with the patient in the office on the potential risks and complications of an elective total hip replacement through a direct anterior approach. Risks discussed include, but are certainly not limited to, risks from anesthesia, superficial infection requiring local wound care or antibiotics, de ep josafat-prosthetic joint infection and the treatment required to eradicate infection, intraoperative fracture, postoperative periprosthetic fracture, damage to local blood vessels or nerves particularly the lateral femoral cutaneous nerve, delayed wound healing requiring local wound care or possibly surgical debridement, hip dislocation, leg length discrepancy, soft tissue irritation around the total hip implant such as iliopsoas tendinitis or trochanteric bursitis, wear and osteolysis from the implants, squeaking or audible noises, groin pain, thigh pain, heterotopic ossification, stiffness, aseptic loosening of the implants, dissatisfaction with surgical outcome, need for revision surgery, DVT, PE, swelling of the operative extremity, acute coronary event, stroke, failure to thrive, and possibly loss of life or limb. The patient understands that while these are the most common complications after an elective hip replacement there are certainly other less common complications possible. They were given ample time to ask questions regarding the potential complications of a hip replacement. Following our discussion the patient provided their verbal and written consent to go forward with an elective total hip replacement. Operative Findings: Severe right hip osteoarthritis Description of Procedure: The patient was identified in the preoperative holding area and the correct hip was marked with my initials. I reviewed the procedure and consent with the patient. All of their questions were answered. The patient was then brought back into the operating room by anesthesia. While on the [facility] anesthesia was administered by the anesthesia team. Preoperative antibiotics and tranexamic acid were also given. After the patient was under anesthesia I examined their ankles to determine their preoperative leg length discrepancy. The skin over the anterior aspect of the hip was shaved to remove hair over the site of plann ed incision. Both feet and ankles were padded with webril and boots for the [place] were applied. The patient was then carefully transferred onto the [place] table. A perineal post was immediately placed. The arms were placed on arm holders and were well-padded. Both boots were secured to the spars on the [place] table. The patient was positioned so that the pelvis was centered over the post. Nonsterile drapes were applied. A timeout was performed identifying the correct patient, operative extremity, and procedure. At this point fluoroscopy was brought in to take preoperative images of the pelvis and operative hip. Using the standing AP pelvis from the office as a template, a comparable image was obtained with fluoroscopy. A metallic bar was used to create a bi-ischial line for use as a reference to leg length adjustments during the procedure. Global offset was also measured on both the operative and nonoperative leg. Fluoroscopy was then brought out and a pre-scrub using a chlorhexidine scrub brush was performed. The operative limb was then prepped and draped in the standard sterile fashion. An anterior longitudinal incision was made lateral and distal to the ASIS. The skin and subcutaneous tissues were incised sharply. The underlying tensor fascia was identified and incised in its midportion. The fascia was dissected free from the underlying muscle and the muscle belly was retracted. A blunt tipped cobra retractor was placed over the superior neck under the muscle fibers of the gluteus minimus. The deep enveloping fascia of the tensor was incised. The anterior leash of vessels were then identified and cauterized. The fascia between the rectus and the capsule was then incised and the pre-capsular fat was excised. A second Cobra was placed inferior to the neck. The interval between the rectus and iliocapsularis and the hip capsule was developed and a retractor was placed carefully over the anterior rim of the acetabulum. A T-shaped anterior capsulotomy was performed. The superior capsular leaflet was left in place in the inferior capsular flap was excised. The Cobra retractors were placed intracapsularly. We then made a femoral neck osteotomy according to preoperative and intraoperative templating and confirmed the level of the osteotomy using fluoroscopic imaging. The femoral head was removed, passed off to the back table, and sized. The superior capsular flap was excised. Retractors were placed circumferentially exposing the acetabulum. We then circumferentially debrided the acetabulum free of labrum and osteophytes. The pulvinar was removed to fully visualize the cotyloid fossa. We then sequentially reamed to achieve peripheral fit and excellent bleeding subchondral bone. The socket was thoroughly irrigated. The acetabular component was impacted into the appropriate position using fluoroscopy to guide version, inclination, and depth of insertion taking care to have a comparable image of the AP pelvis to the standing image taken in the office. An excellent press-fit was achieved and final position was confirmed using fluoroscopy. The press fit was augmented with bony cancellus dome screws. The liner was then impacted into the socket. Attention was then turned to the femur. The remnant dorsal lateral capsule was excised. The short external rotators were visible and protected. A bone hook was used to confirm appropriate translation of the trochanter away from the acetabulum. The leg was then extended and adducted and the bone hook was used to elevate the femur for broaching. A box osteotome and blunt tipped canal sound was then utilized to gain access to the femoral canal. We then sequentially broached the femur in appropriate anteversion until excellent torsional stability was achieved. The neck cut was brought flush to the trial broach with a calcar planar. A trial neck and head were then placed onto the broach and the hip was atraumatically reduced under direct visualization. External rotation to 90 was performed to assess stability. Fluoroscopy was brought in. An AP and lateral fluoroscopic image of the proximal femur was obtained to assess position and fill of the trial broach. An AP of the pelvis was then obtained and matched to the preoperative image taken. A bi-ischial bar was then placed and measurements were taken to assess changes in length and offset. The hip was then carefully dislocated, the proximal femur was exposed, and the trial implants were removed. The wound and proximal femur was thoroughly irrigated using sterile saline and pulsatile lavage. The final femoral implant was dispensed and gently tapped into place generating an excellent press-fit. The trunnion was cleansed and the final head was tapped into place to engage the Waldrop taper. The acetabulum was irrigated and visualized to be free of debris. The hip was carefully reduced. Stability was checked clinically with external rotation to 90 and there was no evidence of instability. Final fluoroscopic images were taken. The wound was then thoroughly irrigated and soaked with a dilute Betadine rinse for 3 minutes. 3 L of sterile saline was irrigated through the wound using pulsatile lavage. Local anesthetic cocktail was injected into the soft tissues around the surgical field. A deep drain was placed. The wound was then closed in layers. A sterile dressing was placed over the surgical incision and drain site. The drapes were taken down and the patient was carefully transferred off of the [place] table. Following removal of the boots the leg lengths felt acceptable. The patient was then taken to recovery room having tolerated the procedure well. . PLAN: The patient can weight-bear as tolerated on the operative extremity. 2 doses of postoperative antibiotics. DVT prophylaxis with aspirin 81 mg twice a day based on preoperative risk stratification. Physical therapy for gait training. Discontinue drain postoperative day #1 if output is less than 100 mL per shift.
[2023-11-01 18:32] LABS: Glucose,Whole Blood 238 mg/dL (70-110)
[2023-11-01] MEDS ORDERED: INSULIN ASPART (NovoLOG) 100 UNIT/ML VIAL SQ ONE ×2 (18:40)
[2023-11-01] MEDS ORDERED: HYDROmorphone 0.5 MG/0.5 ML SYRINGE IVP ONE (18:40)
--- NOTE | 2023-11-01 18:42 | XR ---
Fluoroscopy INDICATION: Pain FINDINGS: Fluoroscopy time: 40 seconds. Total dose area product (DAP) in uGy*m?, mGy*cm? (or similar): 1.9382 Images obtained: 7. IMPRESSION: 1. Documentation of fluoroscopy.
[2023-11-01] MEDS: LACTATED RINGERS 1,000 ML IV SCH (20:58)
[2023-11-01] MEDS ORDERED: SENNOSIDES-DOCUSATE SODIUM 1 EACH TAB PO SCH (21:00)
[2023-11-01] MEDS: ASPIRIN 81 MG PO SCH (21:06)
[2023-11-01] MEDS ORDERED: DOCUSATE 100 MG CAP PO PRN (21:45)
--- NOTE | 2023-11-01 21:46 | P.CONS ---
History of Present Illness - Reason for Consult Consult date: 11/01/23 - History of Present Illness Patient is a 58-year-old male with a PMH of type II DM, hypertension, hyperlipidemia who was admitted for elective right total hip replacement. The patient underwent the procedure earlier today and was seen postoperatively on the surgical unit. He reported ongoing 5 out of 10 right total hip pain. Denied any additional complaints. Denies experiencing sore throat, fever, chills, chest pain, shortness of breath, nausea, vomiting, abdominal pain. Reports compliance with all his medications at home. Review of systems: Pertinent positives and negatives as discussed in HPI, a complete review of systems was performed and all other systems are negative. Physical examination: Vital signs reviewed General: non toxic, no distress, appears at stated age, overweight Derm: no unusual rashes/lesions, warm Head: atraumatic, normocephalic, symmetric Eyes: EOMI, no lid lag, anicteric sclera, pupils equal round reactive to light ENT: Nose and ears atraumatic Neck: No cervical lymphadenopathy, trachea midline, supple Mouth: no lip lesion, mucus membranes moist Cardiovascular: S1S2 reg, no murmur, positive dorsalis pedis pulse bilateral, no edema Lungs: CTA bilateral, no rhonchi, no rales, no accessory muscle use Abdominal: soft, nontender to palpation, no guarding Ext: muscle strength 5 out of 5 in all extremities grossly except right lower extremity postsurgical with distal RLE strength 5/5, postsurgical right hip dressings intact and clean, no gross muscle atrophy, no contractures, Neuro: CN II-XI grossly intact, no gross focal neuro deficits Psych: Alert, oriented, appropriate affect Assessment: Chronic conditions: Type II DM, hypertension, hyperlipidemia Status post right total hip replacement Plan: Continue with the following home medications: -Lipitor 40 mg by mouth daily at bedtime -Protonix 40 mg by mouth daily at bedtime -Lisinopril 20 mg by mouth daily -Lipitor thiazide 25 mg by mouth daily Insulin sliding scale and blood glucose monitoring Defer the resumption of aspirin, DVT prophylaxis, and pain control to the primary surgery service Past Medical History Past Medical History: Coronary Artery Disease (CAD), Cancer, Chest Pain / Angina, Diabetes Mellitus, GERD/Reflux, Hypertension, Osteoarthritis (OA) Additional Past Medical History / Comment(s): SKIN CANCER, History of Any Multi-Drug Resistant Organisms: None Reported Past Surgical History: Heart Catheterization, Joint Replacement Additional Past Surgical History / Comment(s): SKIN LESION REMOVED, COLONOSCOPY, Left hip replacement, Past Anesthesia/Blood Transfusion Reactions: No Reported Reaction Smoking Status: Former smoker - Past Family History Mother Family Medical History: No Reported History Father Family Medical History: Cancer Additional Family Medical History / Comment(s): LUNG CANCER Medications and Allergies Home Medications Medication Instructions Recorded Confirmed Type Atorvastatin [Lipitor] 40 mg PO HS 09/06/22 11/01/23 History Lisinopril-Hctz 20-25 mg 1 tab PO DAILY 09/06/22 11/01/23 History [Zestoretic 20-25] Pantoprazole [Protonix] 40 mg PO HS 09/08/22 11/01/23 History glipiZIDE XL [Glucotrol XL] 10 mg PO BID 09/08/22 11/01/23 History Docusate [Colace] 100 mg PO BID PRN 10/26/23 11/01/23 History Dulaglutide [Trulicity] 4.5 mg SQ TU 10/26/23 10/26/23 History metFORMIN HCL [metFORMIN HCL ER 1,000 mg PO BID 10/26/23 11/01/23 History Osmotic] Aspirin 81 mg PO BID #60 tab 11/01/23 Rx Diclofenac Sodium [Voltaren] 75 mg PO BID #60 tab 11/01/23 Rx Docusate [Colace] 100 mg PO BID #30 capsule 11/01/23 Rx HYDROcodone/APAP 5-325MG [[place] 1 - 2 tab PO Q6HR PRN #32 tab 11/01/23 Rx 5-325] Omeprazole 40 mg PO DAILY #30 cap 11/01/23 Rx Allergies Allergy/AdvReac Type Severity Reaction Status Date / Time ciprofloxacin [From Cipro] AdvReac VERY LOW Verified 11/01/23 13:33 BLOOD SUGAR Physical Exam Vitals: Vital Signs Temp Pulse Resp BP Pulse Ox 11/01/23 20:50 100 11/01/23 19:05 75 17 109/63 97 11/01/23 18:50 80 19 109/63 98 11/01/23 18:35 74 16 116/55 97 11/01/23 18:20 97.6 F 96 18 110/50 95 11/01/23 14:30 72 14 110/70 97 11/01/23 14:23 76 14 119/73 96 11/01/23 13:49 97.4 F L 76 18 114/67 99 Intake and Output 11/01/23 11/01/23 11/01/23 06:59 14:59 22:59 Intake Total 1450 Output Total 200 Balance 1250 Intake: IV 1450 Output: Estimated Blood Loss 200 Other: Weight 98.3 kg Results Labs: Abnormal Lab Results - Last 24 Hours (Table) 11/01/23 11/01/23 Range/Units 13:49 18:31 POC Glucose (mg/dL) 154 H 238 H (70-110) mg/dL
[2023-11-02] MEDS: SODIUM CHLORIDE 0.9% 1,000 ML IV SCH ×2 (05:28→06:22)
[2023-11-02] MEDS: LACTATED RINGERS 1,000 ML IV SCH (05:28)
[2023-11-02 05:36] LABS: Glucose,Whole Blood 291 mg/dL (70-110)
[2023-11-02] MEDS: HYDROcodone/APAP 10-325MG 1 EACH TAB PO PRN ×2 (06:21→11:24)
[2023-11-02] MEDS ORDERED: INSULIN ASPART (NovoLOG) 100 UNIT/ML VIAL SQ SCH (07:30)
--- NOTE | 2023-11-02 07:57 | P.DS ---
Providers Date of admission: 11/01/2023 Attending physician: Kj Arenas Consults: 11/01/23 18:31 Consult Physician Routine Consulting Provider: Bhavna Leone Consult Reason/Comments: post op medical management Do you want consulting provider notified?: Yes Primary care physician: [facility] Course: The patient is a very pleasant previously healthy 58-year-old male who was admitted under my care yesterday. Following an uncomplicated total hip replacement was transferred to the orthopedics floor. He received 2 doses of postoperative antibiotics. He was started on aspirin for DVT prophylaxis. Internal medicine was consulted and assisted in his perioperative medical management. His Hemovac drain was pulled on postoperative day #1. He was transitioned from IV to oral pain medication. He worked with physical therapy and did well. He was ultimately cleared for discharge home. Plan - Discharge Summary Discharge Rx Participant: Yes New Discharge Prescriptions: New HYDROcodone/APAP 5-325MG [[place] 5-325] 1 - 2 tab PO Q6HR PRN #32 tab PRN Reason: Pain Docusate [Colace] 100 mg PO BID #30 capsule Ibuprofen [Motrin] 800 mg PO Q8H #42 tab Aspirin 81 mg PO BID #60 tab Omeprazole 40 mg PO DAILY #30 cap No Action Atorvastatin [Lipitor] 40 mg PO HS glipiZIDE XL [Glucotrol XL] 10 mg PO BID Pantoprazole [Protonix] 40 mg PO HS metFORMIN HCL [metFORMIN HCL ER Osmotic] 1,000 mg PO BID Dulaglutide [Trulicity] 4.5 mg SQ TU Lisinopril-Hctz 20-25 mg [Zestoretic 20-25] 1 tab PO DAILY Docusate [Colace] 100 mg PO BID PRN PRN Reason: Constipation Discharge Medication List Atorvastatin [Lipitor] 40 mg PO HS 09/06/22 [History] Lisinopril-Hctz 20-25 mg [Zestoretic 20-25] 1 tab PO DAILY 09/06/22 [History] Pantoprazole [Protonix] 40 mg PO HS 09/08/22 [History] glipiZIDE XL [Glucotrol XL] 10 mg PO BID 09/08/22 [History] Docusate [Colace] 100 mg PO BID PRN 10/26/23 [History] Dulaglutide [Trulicity] 4.5 mg SQ TU 10/26/23 [History] metFORMIN HCL [metFORMIN HCL ER Osmotic] 1,000 mg PO BID 10/26/23 [History] Aspirin 81 mg PO BID #60 tab 11/01/23 [Rx] Docusate [Colace] 100 mg PO BID #30 capsule 11/01/23 [Rx] HYDROcodone/APAP 5-325MG [[place] 5-325] 1 - 2 tab PO Q6HR PRN #32 tab 11/01/23 [Rx] Omeprazole 40 mg PO DAILY #30 cap 11/01/23 [Rx] Ibuprofen [Motrin] 800 mg PO Q8H #42 tab 11/02/23 [Rx] Follow up Appointment(s)/Referral(s): Kj Arenas MD [Medical Doctor] - 2 Weeks Activity/Diet/Wound Care/Special Instructions: 1. Weight-bear as tolerated on your operative extremity unless instructed otherwise. Use a walker or other assistive device to ambulate. 2. Leave surgical dressing in place. If your dressing becomes saturated with blood, there is drainage, or the dressing becomes loose please contact the office. 3. It is okay to shower with your surgical dressing, but do not submerge in water (no hot tubs, bath's, swimming etc.) 4. Make sure to take her blood clot prevention medication as prescribed (aspirin, Eliquis, Xarelto, and Plavix are commonly prescribed medications for blood clot prevention) 5. While taking [place] or Percocet for pain make sure you're taking a stool softener (Colace) and drink lots of water. 6. Keep all follow-up appointments as scheduled. You will usually be seen in 1-2 weeks following surgery. 7. Please contact the office with any questions or concerns [phone] Discharge Disposition: HOME SELF-CARE
[2023-11-02] MEDS: ASPIRIN 81 MG PO SCH (08:29)
[2023-11-02 08:36] VITALS: BP 104/66; PULSE 94; RESP 20; TEMP 97.7
[2023-11-02 08:57] LABS: African American GFR (CKD) >90 (>60 ml/min/1.73 sqM); Anion Gap 12 mmol/L; Blood Urea Nitrogen 19 mg/dL (9-20); Calcium 8.9 mg/dL (8.4-10.2); Carbon Dioxide 25 mmol/L (22-30); Chloride 93 mmol/L (98-107); Glucose 189 mg/dL (74-99); Non-African American GFR(CKD) >90 (>60 ml/min/1.73 sqM); Potassium 3.8 mmol/L (3.5-5.1); Sodium 130 mmol/L (137-145)
--- NOTE | 2023-11-02 08:57 | FL ---
EXAMINATION TYPE: FL guidance operating room DATE OF EXAM: 11/01/2023 HISTORY: Fluoroscopy time Total dose area product (DAP) in uGy*m?, mGy*cm? (or similar): 1.9382 IMPRESSION: 1. Fluoroscopy time.
[2023-11-02] MEDS ORDERED: LISINOPRIL-HCTZ 20-25 MG 1 EACH TAB PO SCH (09:00)
[2023-11-02 11:09] LABS: Basophils # (A) 0.02 X 10*3/uL (0.00-0.10); Basophils % (A) 0.1 %; Eosinophils # (A) 0 X 10*3/uL (0.04-0.35); Eosinophils % (A) 0 %; HCT 34.3 % (39.6-50.0); HGB 11.9 g/dL (13.0-17.0); Lymphocytes # (A) 1.08 X 10*3/uL (0.90-5.00); Lymphocytes % (A) 7.1 %; MCH 31.3 pg (27.0-32.0); MCHC 34.7 g/dL (32.0-37.0); MCV 90.3 FL (80.0-97.0); Mean Platelet Volume 9.5 FL (9.5-12.2); Monocytes # (A) 1.05 X 10*3/uL (0.20-1.00); Monocytes % (A) 6.9 %; NRBC Per 100 WBC 0 X 10*3/uL (0.00-0.01); Neutrophils # (A) 13.01 X 10*3/uL (1.80-7.70); Neutrophils % (A) 85.4 %; Platelet Count 316 X 10*3/uL (140-440); WBC 15.23 X 10*3/uL (4.50-10.00)
--- NOTE | 2023-11-02 16:34 | P.PN ---
Subjective Progress Note Date: 11/02/23 Hospital course: Patient is a very pleasant 58-year-old male with a past medical history of hypertension, hyperlipidemia, and type II iwz-pzfdlkv-nnnebpgsg diabetes mellitus. He is currently presented under orthopedic surgery team and is status post right total hip arthroplasty secondary to severe right hip osteoarthritis. We were consulted for medical management throughout patient's hospitalization. Physical exam: Patient denies having any major complaints at this time. Reports controlled postoperative pain. Patient has been ambulating to and from the restroom. He worked with physical therapy and reportedly did well. Vital signs reviewed and stable. General: Nontoxic, no distress and appears stated age. Derm: Skin warm and dry, normal coloration for ethnicity. Head: Atraumatic, normocephalic and symmetric. Eyes: EOMs intact, no lid lag, and anicteric sclera Mouth: no lip lesions, mucus membranes moist Cardiovascular: regular rate and rhythm with normal S1S2, no murmur, positive posterior tibial pulses bilaterally, and cap refill < 2 seconds. Lungs: Respirations even, regular, and unlabored on room air. Lungs CTA bilaterally, no rhonchi, no rales, no wheezing, and no accessory muscle usage. Abdominal: soft, nontender to palpation, no guarding, no appreciable organomegaly Ext: ROM intact. No gross muscle atrophy, no edema, no contractures Neuro: Speech clear, face symmetrical and CN II-XII grossly intact with no noted focal neuro deficits Psych: Alert and oriented to person, place, time, and situation. Appropriate and pleasant affect. Assessment and Plan of Care: Acute postoperative blood loss anemia CBC showing acute postoperative blood loss anemia with postoperative hemoglobin of 11.9 and preoperative hemoglobin of 15.4. This is a a stable and expected finding. With no need for transfusion or further interventions at this time. Postoperative leukocytosis, reactive CBC also revealing mild leukocytosis with WBC count of 15.23, believed to be reactive secondary to stressor from surgical procedure. This is a a stable and expected finding, no signs of infection and no need for further interventions at this time. Type 2 diabetes mellitus with hyperglycemia. Recommend resuming daily medication regimen with metformin 1000 mg twice daily and glipizide 10 mg twice daily. Hypertension Patient to continue daily medication regimen with lisinopril/hydrochlorothiazide 20/25 mg tablets daily. Status post right total knee Management per primary admitting orthopedic surgery team including DVT prophylaxis, pain management, wound/dressing care, weightbearing, and PT/OT. Data and imaging reviewed: Labs completed and reviewed. CBC showing acute postoperative blood loss anemia with postoperative hemoglobin of 11.9 and preoperative hemoglobin of 15.4. CBC also revealing mild leukocytosis with WBC count of 15.23, believed to be reactive secondary to stressor from surgical procedure. BMP revealing mild hyponatremia with sodium 130 and chloride of 93. This is likely secondary to nothing by mouth status obtained prior to surgery and mild dehydration. Patient eating and drinking well at this time and denies having any nausea or vomiting. Blood glucose 189. Vital signs reviewed. Blood pressure 104/66, heart rate 94, respiratory rate 20, temp 97.7F, and SpO2 of 97% on room air. Patient medically optimized and cleared for discharge from medical perspective once discharged by primary admitting orthopedic surgery team. Thank you for allowing us to participate in the care of this pleasant patient. Do not hesitate to contact us with questions. Someone can be reached from the [facility] hospitalist group all hours of the day at [phone] or via [employer]. Patient was seen independently by Nurse Pracitioner. This document was prepared using [employer] dictation software. Please allow for errors in chairman ceo, while rare they do occur. Jose C Oswald NP rendered care for this patient independently, reviewed the f indings and plan as documented in the note above. I did not physically speak with or examine the patient on this date. Objective - Vital Signs Vital signs: Vital Signs Temp 97.5 F L 11/02/23 01:30 Pulse 88 11/02/23 01:30 Resp 18 11/02/23 01:30 BP 111/72 11/02/23 01:30 Pulse Ox 94 L 11/02/23 01:30 FiO2 Intake & Output 11/01/23 11/02/23 11/02/23 18:59 06:59 18:59 Intake Total 1450 Output Total 200 Balance 1250 Weight 98.3 kg 98.3 kg Intake: IV 1450 Output: Estimated Blood Loss 200 Other: Voiding Method Toilet # Voids 2 - Labs CBC & Chem 7: 11/02/23 07:10 11/02/23 07:10 Labs: Abnormal Lab Results - Last 24 Hours (Table) 12/06/23 12/06/23 12/07/23 Range/Units 13:49 18:31 05:34 POC Glucose (mg/dL) 154 H 238 H 291 H (70-110) mg/dL
[2023-11-02] MEDS ORDERED: PANTOPRAZOLE 40 MG TABLET PO SCH (21:00)
[2023-11-02] MEDS ORDERED: ATORVASTATIN 40 MG TAB PO SCH (21:00)
== END 2023-11-02 11:37 | disposition home or self-care (01) ==
LOC: OR 12:25 → 4SSUR 18:20 → OR 11-02 11:37
PROVIDERS: ATTEND Orthopaedic Surgery
DX: M16.11 Unilateral primary osteoarthritis, right hip (principal); E11.9 Type 2 diabetes mellitus without complications; E78.5 Hyperlipidemia, unspecified; I10 Essential (primary) hypertension; I25.10 Atherosclerotic heart disease of native coronary artery without angina pectoris; K21.9 Gastro-esophageal reflux disease without esophagitis; Z79.82 Long term (current) use of aspirin; Z79.84 Long term (current) use of oral hypoglycemic drugs; Z79.899 Other long term (current) drug therapy; Z85.828 Personal history of other malignant neoplasm of skin; Z87.891 Personal history of nicotine dependence; Z88.1 Allergy status to other antibiotic agents; Z96.643 Presence of artificial hip joint, bilateral
CPT/HCPCS: 94760; 97161; 64447; 80048; 85025; 73501; 27130; C1776; J2250; J1100; J2710; J0690 ×2; J2405; J2001; J3010; J3490; J2795; J1885; J2704; J1170; J2371